=== PATIENT | male | born 1975 | race Caucasian/White ===

== ENCOUNTER 2023-07-19 21:54 | Emergency (ER) | payer OTHER ==
[2023-07-19 22:06] VITALS: TEMP 97.9
--- NOTE | 2023-07-19 22:27 | XR ---
EXAMINATION TYPE: XR chest 2V DATE OF EXAM: 07/19/2023 COMPARISON: Chest CT December 14, 2012 HISTORY: Cough TECHNIQUE: Frontal and lateral views of the chest are obtained. FINDINGS: There is no suspicious new focal air space opacity, pleural effusion, or pneumothorax seen . The cardiac silhouette size remains within normal limits. The osseous structures are intact. IMPRESSION: No acute pulmonary infiltrate.
--- NOTE | 2023-07-19 23:44 | ED ---
URI HPI - General Chief Complaint: Upper Respiratory Infection Stated Complaint: SOB wheezing runny nose Time Seen by Provider: 07/19/23 23:41 Source: patient, RN notes reviewed, old records reviewed Mode of arrival: ambulatory Limitations: no limitations - History of Present Illness Initial Comments: This is a 40-year-old male to the ER for evaluation patient was today for evaluation regards to cough congestion shortness of breath and bronchospasm with wheezing that was sudden onset tonight but has been going on for a few weeks. Patient has no fevers no chest pain no recent travel history or known sick contacts. Symptoms been progressive for a few months with outpatient lab testing which has been normal, patient did improve with steroids and antibiotics twice but symptoms were recurrent MD Complaint: cough, sore throat, nasal congestion, other (Bronchospasm and wheezing) -: week(s) Severity: severe Severity scale (1-10): 8 Consistency: intermittent Improves With: OTC cold medicine Worsens With: activity Context: sick contacts Associated Symptoms: myalgias, cough, shortness of breath Treatments Prior to Arrival: none - Related Data Previous Rx's Medication Instructions Recorded Azithromycin [Zithromax] 500 mg PO DAILY #5 tab 07/20/23 Benzonatate [Tessalon Perles] 100 mg PO TID PRN #15 capsule 07/20/23 predniSONE 50 mg PO DAILY #5 tab 07/20/23 Allergies Allergy/AdvReac Type Severity Reaction Status Date / Time Sulfa (Sulfonamide Allergy Rash/Hives Verified 07/19/23 22:03 Antibiotics) Review of Systems ROS Statement: Those systems with pertinent positive or pertinent negative responses have been documented in the HPI. ROS Other: All systems not noted in ROS Statement are negative. Past Medical History History of Any Multi-Drug Resistant Organisms: None Reported Past Surgical History: Cholecystectomy Past Psychological History: No Psychological Hx Reported Smoking Status: Former smoker Past Alcohol Use History: Occasional Past Drug Use History: None Reported General Exam Limitations: no limitations General appearance: alert, in no apparent distress, anxious Head exam: Present: atraumatic, normocephalic, normal inspection Eye exam: Present: normal appearance, PERRL, EOMI. Absent: scleral icterus, conjunctival injection, periorbital swelling ENT exam: Present: normal exam, mucous membranes moist Neck exam: Present: normal inspection. Absent: tenderness, meningismus, lymp hadenopathy Respiratory exam: Present: normal lung sounds bilaterally. Absent: respiratory distress, wheezes, rales, rhonchi, stridor Cardiovascular Exam: Present: regular rate, normal rhythm, normal heart sounds. Absent: systolic murmur, diastolic murmur, rubs, gallop, clicks GI/Abdominal exam: Present: soft, normal bowel sounds. Absent: distended, tenderness, guarding, rebound, rigid Extremities exam: Present: normal inspection, full ROM, normal capillary refill. Absent: tenderness, pedal edema, joint swelling, calf tenderness Back exam: Present: normal inspection Neurological exam: Present: alert, oriented X3, CN II-XII intact Psychiatric exam: Present: normal affect, normal mood Skin exam: Present: warm, dry, intact, normal color. Absent: rash Course Vital Signs 07/19/23 07/20/23 07/20/23 22:01 00:33 00:49 Temperature 97.9 F Pulse Rate 84 95 98 Respiratory 20 Rate Blood Pressure 161/97 O2 Sat by Pulse 96 Oximetry 07/20/23 01:05 Temperature Pulse Rate 77 Respiratory 16 Rate Blood Pressure 139/84 O2 Sat by Pulse 96 Oximetry - Reevaluation(s) Reevaluation #1: 07/20/23 00:41 Medical records reviewed Reevaluation #2: 07/20/23 00:41 Patient symptoms improved Reevaluation #3: 07/20/23 00:41 Patient informed of results questions answered Reevaluation #4: Was pt. sent in by a medical professional or institution (, PA, ACCOUNTS PAYABLE ADMINISTRATOR, urgent care, hospital, or [facility]...) When possible be specific @ -no Did you speak to anyone other than the patient for history (EMS, parent, family, police, friend...)? What history was obtained from this source @ -no Did you review nursing and triage notes (agree or disagree)? Why? @ -agree Are old charts reviewed (outside hosp., previous admission, EMS record, old EKG, old radiological studies, urgent care reports/EKG's, [facility] records)? Report findings @ -yes Differential Diagnosis (chest pain, altered mental status, abdominal pain women, abdominal pain men, vaginal bleeding, weakness, fever, dyspnea, syncope, headache, dizziness, GI bleed, back pain, seizure, CVA, palpatations, mental health, musculoskeletal)? @ -prior EKG interpreted by me (3pts min.). @ -no X-rays interpreted by me (1pt min.). @ -yes negative for acute disease CT interpreted by me (1pt min.). @ -no U/S interpreted by me (1pt. min.). @ -no What testing was considered but not performed or refused? (CT, X-rays, U/S, l abs)? Why? @ -none What meds were considered but not given or refused? Why? @ -none Did you discuss the management of the patient with other professionals (professionals i.e. , PA, ACCOUNTS PAYABLE ADMINISTRATOR, lab, RT, psych nurse, social media marketing manager, cloth hauler, teacher, risk control officer, social work case manager)? Give summary @ -no Was smoking cessation discussed for >3mins.? @ -no Was critical care preformed (if so, how long)? @ -no Were there social determinants of health that impacted care today? How? (Homelessness, low income, unemployed, alcoholism, drug addiction, transportation, low edu. Level, literacy, decrease access to med. care, alf, rehab)? @ -none Was there de-escalation of care discussed even if they declined (Discuss DNR or withdrawal of care, Hospice)? DNR status @ -no What co-morbidities impacted this encounter? (DM, HTN, Smoking, COPD, CAD, Cancer, CVA, ARF, Chemo, Hep., AIDS, mental health diagnosis, sleep apnea, morbid obesity)? @ -none Was patient admitted / discharged? Hospital course, mention meds given and route, prescriptions, significant lab abnormalities, going to OR and other pertinent info. @ - 48 male to ER for evaluation of persistent cough and congestion here in the emergency department. Patient has significant wheezing and bronchospasm episode prior to arrival with laryngeal spasm. Those symptoms are resolved now patient feels well and can be discharged home Discharged Undiagnosed new problem with uncertain prognosis? @ -no Drug Therapy requiring intensive monitoring for toxicity (Heparin, Nitro, Insulin, Cardizem)? @ -no Were any procedures done? @ -no Diagnosis/symptom? @ -Bronchospasm laryngeal spasm Acute, or Chronic, or Acute on Chronic? @ -Acute Uncomplicated (without systemic symptoms) or Complicated (systemic symptoms)? @ -Complicated Side effects of treatment? @ -no Exacerbation, Progression, or Severe Exacerbation? @ -exacerbation Poses a threat to life or bodily function? How? (Chest pain, [place], [place], pneumonia, PE, COPD, DKA, ARF, appy, cholecystitis, CVA, Diverticulitis, Homicidal, Suicidal, threat to staff... and all critical care pts) @ -yes 07/28/23 22:44 Reevaluation #5: Differential Dyspnea: Coronary syndrome, arrhythmia, tamponade, asthma, COPD, pulmonary embolism, pneumonia, pneumothorax, pulmonary effusion, anaphylaxis, diabetic ketoacidosis, flailed chest, pulmonary contusion, diaphragmatic rupture, anemia, neuromuscular, this is not meant to be an all-inclusive list. Medical Decision Making - Medical Decision Making 48 male to ER for evaluation of persistent cough and congestion here in the emergency department. Patient has significant wheezing and bronchospasm episode prior to arrival with laryngeal spasm. Those symptoms are resolved now patient feels well and can be discharged home - Lab Data Lab Results 07/19/23 Range/Units 22:05 Influenza Type A (PCR) Not Detected (Not Detectd) Influenza Type B (PCR) Not Detected (Not Detectd) RSV (PCR) Not Detected (Not Detectd) SARS-CoV-2 (PCR) Not Detected (Not Detectd) - EKG Data -: EKG Interpreted by Me - Radiology Data Radiology results: report reviewed (Chest x-ray is negative for acute disease), image reviewed Disposition Clinical Impression: Upper respiratory tract infection, Acute upper respiratory infection, Cough Disposition: HOME SELF-CARE Condition: Good Instructions (If sedation given, give patient instructions): Upper Respiratory Infection (ED) Prescriptions: predniSONE 50 mg PO DAILY #5 tab Benzonatate [Tessalon Perles] 100 mg PO TID PRN #15 capsule PRN Reason: Cough Azithromycin [Zithromax] 500 mg PO DAILY #5 tab Is patient prescribed a controlled substance at d/c from ED?: No Referrals: None,Stated [Primary Care Provider] - 1-2 days Time of Disposition: 00:30
[2023-07-20] MEDS: DEXAMETHASONE SOD PHOSPHATE 10 MG/ML 1 ML VIAL IM STA (00:19)
[2023-07-20] MEDS: BENZONATATE 100 MG CAP PO STA (00:20)
[2023-07-20] MEDS: AZITHROMYCIN 500 MG TAB PO STA (00:20)
[2023-07-20] MEDS: IPRATROPIUM-ALBUTEROL 3 ML NEB INHALATION STA (00:30)
[2023-07-20 01:33] VITALS: PULSE 77
[2023-07-20 01:34] VITALS: BP 139/84; RESP 16
== END 2023-07-20 01:06 | disposition home or self-care (01) ==
LOC: EC 21:54
DX: J06.9 Acute upper respiratory infection, unspecified (principal); Z87.891 Personal history of nicotine dependence; Z88.2 Allergy status to sulfonamides
CPT/HCPCS: 94640; 87636; 71046; 99285; 96372; J1100